=== PATIENT | female | born 1960 | race Caucasian/White ===

== ENCOUNTER 2020-09-06 03:42 | Observation (INO) ==
[2020-09-06] MEDS ORDERED: METOPROLOL TARTRATE 5 MG/5 ML VIAL IV STA (04:22)
[2020-09-06 05:08] LABS: Basophils # 0.1 10*3/uL (0.0-0.2); Basophils % 0.6 % (0.0-0.8); Eosinophils # 0.6 10*3/uL (0.0-0.87); Eosinophils % 5.9 % (0.00-10.9); Hematocrit 43.4 VOL% (35.7-47.0); Hemoglobin 14.4 GM/DL (12.0-16.0); Immature Granulocytes % 0.4 %; Immature Granulocytes Absolute 0.04 #; Lymphocytes # 3.2 10*3/uL (1.4-4.0); Lymphocytes % 31.5 % (21.3-54.2); Mean Corpuscular HGB Conc 33.2 GM/DL (32-36); Mean Corpuscular Volume 87.7 FL (87-102); Mean Platelet Volume 11.6 FL (9.6-12.0); Monocytes % 14.2 % (1.7-12.7); Neutrophils % 47.4 % (38.7-73.9); Platelet Count 272 T/CUMM (130-400); Red Blood Count 4.95 MC/CUMM (3.8-5.5); Red Cell Distribution Width 14.5 % (9.3-17.3); White Blood Count 10.3 T/CUMM (4-12)
[2020-09-06] MEDS ORDERED: ONDANSETRON 4 MG/2 ML VIAL IV PRN (05:23)
[2020-09-06] MEDS ORDERED: GLUCAGON 1 MG VIAL IM PRN (05:23)
[2020-09-06] MEDS ORDERED: DEXTROSE 50% 25 GM/50 ML VIAL IV PRN (05:23)
[2020-09-06 05:25] LABS: Alanine Aminotransferase 34 U/L (13-56); Albumin 3.7 G/DL (3.4-5.0); Alkaline Phosphatase 94 U/L (45-117); Aspartate Amino Transferase 26 U/L (0-37); Bilirubin,Total < 0.39 MG/DL (0.2-1.0); Blood Urea Nitrogen 19 MG/DL (7-18); Calcium 9.5 MG/DL (8.5-10.1); Carbon Dioxide 24 MMOL/L (21-32); Estimated Glom Filtration Rate 85 ML/MIN; Glucose 240 MG/DL (74-106); Osmolality,Calculated 277.2 MOS/KG (273-304); Potassium 4.4 MMOL/L (3.5-5.1); Sodium 134 MMOL/L (136-145); Total Protein 8.3 G/DL (6.4-8.2)
[2020-09-06 06:02] LABS: PT Patient Result 10.9 SECS (10.5-12.0); Partial Thromboplastin Time 25.2 SECS (23.9-33.8)
[2020-09-06 07:38] LABS: Free T4 (Free Thyroxine) 0.98 NG/DL (0.76-1.46)
[2020-09-06] MEDS ORDERED: MAGNESIUM SULF RIDER 2 GM/50 ML PREMIX IV ONE (09:32)
[2020-09-06] MEDS ORDERED: carvediloL 3.125 MG TABLET PO SCH (09:33)
[2020-09-06] MEDS ORDERED: ISOSORBIDE MONONITRATE 30 MG TABLET PO SCH (09:33)
[2020-09-06] MEDS ORDERED: CLOPIDOGREL 75 MG TABLET PO SCH (09:33)
[2020-09-06] MEDS ORDERED: lisinopriL 10 MG TABLET PO SCH (09:33)
[2020-09-06] MEDS: INSULIN REGULAR 100 UNIT/ML SUBCUT SCH ×4 (10:07→21:08)
[2020-09-06] MEDS: ASCORBIC ACID 500 MG TABLET PO SCH ×2 (10:51→21:07)
[2020-09-06] MEDS ORDERED: PROMETHAZINE 25 MG TABLET PO PRN (13:43)
[2020-09-06] MEDS ORDERED: NON-FORMULARY MEDICATION (Naloxone [Narcan] 4 mg/actuation spray,non-aerosol) ONE NARE PRN (13:43)
[2020-09-06] MEDS ORDERED: oxyCODONE/ACETAMINOPHEN 5-325 MG TABLET PO PRN (14:09)
[2020-09-06] MEDS: CYCLOBENZAPRINE 10 MG TABLET PO SCH ×2 (14:32→21:08)
[2020-09-06] MEDS ORDERED: carvediloL 3.125 MG TABLET PO ONE (14:44)
[2020-09-06 14:51] LABS: Bacteria,Urine Occasional /HPF (Few); Bilirubin,Urine Negative (Negative); Blood, Urine Negative (Negative); Glucose,Urine (UA) >=500 mg/dL (Negative); Ketones,Urine 5 mg/dL (Negative); Nitrite,Urine Negative (Negative); Protein,Urine Negative; RBC,Urine <1 /HPF (0-4); Squamous Epithelial Cell,Urine Occasional /HPF (0-10); Urine Appearance CLEAR (Clear); Urine Color Yellow (Yellow); Urine Specific Gravity 1.017 (1.001-1.035); Urine Urobilinogen < 2.0 EU/DL (0.2-1.0)
[2020-09-06] MEDS: APIXABAN 5 MG TABLET PO SCH ×2 (16:59→21:09)
[2020-09-06] MEDS ORDERED: carvediloL 6.25 MG TABLET PO SCH (21:00)
[2020-09-06] MEDS ORDERED: PREGABALIN 75 MG CAPSULE PO SCH (21:00)
[2020-09-06] MEDS ORDERED: LINACLOTIDE 145 MCG CAPSULE PO SCH (21:00)
[2020-09-06] MEDS ORDERED: HydrOXYzine PAMOATE 25 MG CAPSULE PO SCH (21:00)
[2020-09-06] MEDS ORDERED: ROSUVASTATIN 10 MG TABLET PO SCH (21:00)
[2020-09-06] MEDS ORDERED: METHENAMINE HIPPURATE 1 GM TABLET PO SCH (21:00)
[2020-09-07 05:24] LABS: Basophils # 0.1 10*3/uL (0.0-0.2); Basophils % 1.2 % (0.0-0.8); Eosinophils # 0.7 10*3/uL (0.0-0.87); Eosinophils % 8.4 % (0.00-10.9); Hematocrit 39.5 VOL% (35.7-47.0); Hemoglobin 12.6 GM/DL (12.0-16.0); Immature Granulocytes % 0.3 %; Immature Granulocytes Absolute 0.02 #; Lymphocytes # 3.1 10*3/uL (1.4-4.0); Lymphocytes % 39.3 % (21.3-54.2); Mean Corpuscular HGB Conc 31.9 GM/DL (32-36); Mean Corpuscular Volume 90.4 FL (87-102); Mean Platelet Volume 11.1 FL (9.6-12.0); Monocytes % 13.4 % (1.7-12.7); Neutrophils % 37.4 % (38.7-73.9); Platelet Count 257 T/CUMM (130-400); Red Blood Count 4.37 MC/CUMM (3.8-5.5); Red Cell Distribution Width 14.6 % (9.3-17.3); White Blood Count 7.8 T/CUMM (4-12)
[2020-09-07 05:47] LABS: Atypical Lymphocytes Few; Band Neutrophils 1 % (0-10); Eosinophils 4 % (0-10); Hypochromasia 1+; Lymphocytes 33 % (20-55); Segmented Neutrophils 43 % (50-85); Total Cells Counted 100
[2020-09-07 05:48] LABS: Microcytosis 1+; Platelet Estimate Normal
[2020-09-07 05:57] LABS: Albumin 3.3 G/DL (3.4-5.0); Bilirubin,Total 0.5 MG/DL (0.2-1.0); Osmolality,Calculated 282.1 MOS/KG (273-304); Potassium 4.5 MMOL/L (3.5-5.1); Total Protein 7.2 G/DL (6.4-8.2)
[2020-09-07 06:07] VITALS: BP 110/59
[2020-09-07] MEDS: CYCLOBENZAPRINE 10 MG TABLET PO SCH (06:13)
[2020-09-07] MEDS ORDERED: PANTOPRAZOLE 40 MG TABLET PO SCH (06:30)
== END 2020-09-07 08:00 | disposition home or self-care (01) ==
LOC: N.EDINP 03:42 → N.ED 03:42 → SUATTDRO 05:23 → N.TELEN 06:11
PROVIDERS: ADMIT Internal Medicine; ATTEND Internal Medicine